=== PATIENT | female | born 1990 | race African-American/Black ===

== ENCOUNTER 2022-03-22 16:55 | Emergency (ER) | payer OTHER, SELFPAY ==
[2022-03-22 17:02] VITALS: BP 131/88; PULSE 73; RESP 16; TEMP 37.4; O2SAT 100
--- NOTE | 2022-03-22 17:03 | ED.GENADULT ---
HPI - General Adult General Chief complaint: Nausea/Vomiting/Diarrhea Stated complaint: Nausea,Headache Time Seen by Provider: 03/22/22 17:04 Source: patient Mode of arrival: ambulatory Limitations: no limitations History of Present Illness HPI narrative: 31 yo F presents with c/o diarrhea and nausea starting yesterday. Today woke up with headache. Has vomited twice today and continues to have diarrhea. c/o fatigue and bodyaches. no ABD pain. Also reports pain intermittent to R ear. Denies cough, congestion, sore throat. Works at [employer] with covid pts. Did a PCR test today and waiting for results. All systems reviewed and negative except as noted above. Related Data Allergies Allergy/AdvReac Type Severity Reaction Status Date / Time Penicillins Allergy Hives Verified 09/28/19 10:23 Review of Systems Review of Systems: CONSTITUTIONAL: Denies fever, chills, or sweats. EYES: Denies visual changes, redness, or discharge. ENT: Denies rhinorrhea, congestion, sore throat. Reports right ear pain CARDIOVASCULAR: Denies chest pain, palpitations, or edema. RESPIRATORY: Denies cough or dyspnea. GASTROINTESTINAL: Denies abdominal pain. Reports nausea, vomiting, or diarrhea. GENITOURINARY: Denies dysuria or hematuria. SKIN: Denies rash or itching. MUSCULOSKELETAL: Denies back pain, joint pain, or myalgia. NEUROLOGIC: Reports headache. Denies numbness, or weakness. PSYCHIATRIC: Denies anxiety or depression. All other systems reviewed are negative, except as documented in HPI. PMFSH Comments At time of signature, agree with nursing past medical, surgical, social and family history. There is no relevant family history pertinent to the presenting complaint. Exam Narrative: GENERAL: This is a well-nourished, well-developed patient, in no apparent distress. HEAD: normocephalic, atraumatic. EYES: PERRL. Sclera clear/white. Vision is grossly intact. EARS: External ears normal, auditory canals clear and without drainage, clear fluid to right TM. Left TM is normal. NOSE: External nose normal with no obvious nasal discharge, nares without redness, no rhinorrhea. THROAT: Mucous membranes moist, posterior pharynx clear. NECK: Neck supple, non-tender without lymphadenopathy, masses or thyromegaly. CARDIOVASCULAR: Regular rate and rhythm without murmurs, gallops, or rubs. RESPIRATORY: Clear to auscultation. Breath sounds equal bilaterally. No wheezes, rales, or rhonchi. GASTROINTESTINAL: Abdomen soft, non-tender, nondistended. Bowel sounds are active. No hepato-splenomegaly, or palpable masses. No guarding. SKIN: warm, Dry, intact with no suspicious lesions or rash, good texture and turgor. NEURO: awake, alert, and oriented to person, place and time. There were no obvious focal neurologic abnormalities. EXTREMITIES: No joint tenderness, effusion, or edema noted. Course Course Level of Care: Express Care Visit Vital Signs Vital signs: Vital Signs Temperature 37.4 C 03/22/22 17:02 Pulse Rate 73 03/22/22 17:02 Respiratory Rate 16 03/22/22 17:02 Blood Pressure 131/88 03/22/22 17:02 Pulse Oximetry 100 03/22/22 17:02 Oxygen Delivery Room Air 03/22/22 17:02 Temperature 37.4 C 03/22/22 17:02 Pulse Rate 73 03/22/22 17:02 Respiratory Rate 16 03/22/22 17:02 Blood Pressure 131/88 03/22/22 17:02 Pulse Oximetry 100 03/22/22 17:02 Oxygen Delivery Room Air 03/22/22 17:02 Reviewed Medical Decision Making MDM Narrative Medical decision making narrative: Patient is aware of diagnosis, understands and agrees to treatment plan. Anticipatory guidance given. Patient agrees to follow-up as directed and is aware of reasons to seek care at the emergency department. Portions of this record may have been created with voice recognition software Vital Signs Vital Signs: Vital Signs Temperature 37.4 C 03/22/22 17:02 Pulse Rate 73 03/22/22 17:02 Respiratory Rate 16 03/22/22 17:02 Blood Pressure 1
== END 2022-03-22 17:26 | disposition home or self-care (01) ==
PROVIDERS: Emergency Provider Nurse Practitioner Family
DX: A08.4 Viral intestinal infection, unspecified (principal); H69.91 Unspecified Eustachian tube disorder, right ear
CPT/HCPCS: 99213; G0463